=== PATIENT | female | born 1985 | race Caucasian/White ===

== ENCOUNTER 2019-10-02 16:09 | Emergency (ER) | payer MEDICAID ==
--- NOTE | 2019-10-02 16:25 | Emergency Department Record ---
History of Present Illness - General Chief Complaint: Abdominal Pain Stated Complaint: ABD PAIN Time Seen by Provider: 10/02/19 16:15 Source: Patient Mode of Arrival: Ambulatory Limitations: No limitations - History of Present Illness Initial Comments: 33 yo female presents with abdominal pain. The patient presents with abdominal and gynecologic concerns over the last 6-8 months. 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 The predisposes her for early cancers of multiple different causes. She has been monitored by GI and [employer]. She has had colonoscopies with polyps identified with precancerous findings. She has yearly scopes. Her last scope she thinks was last November. She has an appointment tomorrow with her GI doctor in [place]. She has had negative work ups in 2019 for ovarian and uterine cancers. She does have chronic pain from endometriosis. Her [facility] [employer] [facility] is in [place]. She has had months of nausea, discharge, lower discomfort. She is trying to get currently in anticipation of having a hysterectomy in the next 2-3 years to avoid cancer. No fever. No rash. She has hot and cold flashes. She admits to depression and anxiety given her medical diagnosis. She does not see a PCP. MD Complaint: Abdominal pain Onset/Timin -: Month(s) Location: Diffuse Radiation: Back Severity scale (1-10): 7 Consistency: Constant Improves With: Nothing Worsens With: Nothing Associated Symptoms: Other - Related Data LMP Date: 09/11/19 Patient : No Previous Rx's Medication Instructions Recorded Clindamycin HCl [Cleocin HCl] 300 mg PO TID #21 capsule 10/02/19 Promethazine HCl [Phenergan] 25 mg PO Q12H #15 tablet 10/02/19 Allergies Allergy/AdvReac Type Severity Reaction Status Date / Time cefaclor [From Ceclor] Allergy HIVES Verified 10/02/19 16:25 amoxicillin [From Augmentin] AdvReac NAUSEA AND Verified 10/02/19 16:25 VOMITING clavulanic acid AdvReac NAUSEA AND Verified 10/02/19 16:25 [From Augmentin] VOMITING Travel Screening - Travel/Exposure Within Last 30 Days Have you traveled within the last 30 days?: No Past Medical History - SOCIAL HISTORY Smoking Status: Current every day smoker Alcohol Use: None Drug Use: None - RESPIRATORY Hx Respiratory Disorders: Yes Hx Asthma: Yes - CARDIOVASCULAR Hx Cardio Disorders: No - NEURO Hx Neuro Disorders: No - GI Hx GI Disorders: No - Hx Genitourinary Disorders: No - ENDOCRINE Hx Endocrine Disorders: No - MUSCULOSKELETAL Hx Musculoskeletal Disorders: No - PSYCH Hx Psych Problems: No - HEMATOLOGY/ONCOLOGY Hx Hematology/Oncology Disorders: No Family Medical History Any Significant Family History?: No Physical Exam - General General Appearance: Alert, Oriented x3, Cooperative, No acute distress Limitations: No limitations - Head Head exam: Atraumatic, Normal inspection - Eye Eye exam: Normal appearance, PERRL. negative: Conjunctival injection, Scleral icterus - ENT ENT exam: Normal exam, Mucous membranes moist Ear exam: Normal external inspection Nasal Exam: Normal inspection Mouth exam: Normal external inspection - Neck Neck exam: Normal inspection, Full ROM, Lymphadenopathy (few small anterior cervical non tender, mobile, small lymph nodes) - Respiratory Respiratory exam: Normal lung sounds bilaterally. negative: Rhonchi, Stridor, Wheezes - Cardiovascular Cardiovascular Exam: Regular rate, Normal rhythm, Normal heart sounds - GI/Abdominal GI/Abdominal exam: Soft, Tenderness (mild lower tenderness but soft, no mass). negative: Distended, Guarding, Rebound, Rigid - Rectal Rectal exam: Deferred - exam: Normal external exam, Normal speculum exam. negative: Abnormal external exam, Vaginal bleeding, Vaginal discharge, Vaginal erythema - Extremities Extremities exam: Normal inspection - Back Back exam: Denies: CVA tenderness (R), CVA tenderness (L) - Neurological Neurological exam: Alert, Oriented X3 - Psychiatric Psychiatric exam: Anxious - Skin Skin exam: Dry, Intact, Normal color, Warm Course Vital Signs 10/02/19 16:14 Temperature 98.1 F Pulse Rate 80 Respiratory 20 Rate Blood Pressure 161/96 Pulse Ox 100 - Reevaluation(s) Reevaluation #1: 10/02/19 17:23 [facility] was reviewed including her radiology studies in 2018 (MRI enterography, ultrasounds), [facility] [employer] appointment in May with the recommendation for surveillance of her medical diagnosis. 10/02/19 17:37 The CBC was reviewed. No acute abnormality The UA is negative for infection The HCG is negative Wet prep negative for trich or yeast. No WBCs. No clue cells. Bacteria visualized. Moderate epithelial cells. 10/02/19 17:52 The CMP is normal Medical Decision Making - Lab Data Result diagrams: 10/02/19 17:00 10/02/19 17:00 Disposition Disposition: Discharge Clinical Impression: Abdominal pain Disposition: Home, Self-Care Condition: (1) Good Instructions: Abdominal Pain (ED) Additional Instructions: Call your [employer] for your follow up and continued cancer screening Follow up tomorrow as scheduled with your GI specialist. Take a copy of all your lab tests with your to the appointment. Prescriptions: Clindamycin HCl [Cleocin HCl] 300 mg PO TID #21 capsule Promethazine HCl [Phenergan] 25 mg PO Q12H #15 tablet Forms: Patient Portal Access Time of Disposition: 17:52 Quality - Quality Measures Quality Measures: N/A - Blood Pressure Screening Does Patient Have Any of the Following: No Blood Pressure Classification: Pre-Hypertensive BP Reading Systolic Measurement: 124 Diastolic Measurement: 80 Screening for High Blood Pressure: < Pre-Hypertensive BP, F/U Documented > [[id number]] Pre-Hypertensive Follow-up Interventions: Referral to alternative/primary care provider.
[2019-10-02] MEDS ORDERED: ONDANSETRON HCL IV 4 MG/2 ML VIAL IVP ONE (16:44)
[2019-10-02] MEDS ORDERED: 0.9 % SODIUM CHLORIDE 1,000 ML BAG IV ONE (16:44)
[2019-10-02] MEDS ORDERED: KETOROLAC 30 MG/ML VIAL IVP ONE (17:16)
[2019-10-02 17:24] LABS: ABSOLUTE NEUTROPHIL COUNT 8.21; BASO % 0.3 % (0-6); EOS % 1.3 % (0-6); GRAN % 75.3 % (47-80); HEMATOCRIT 42.8 % (35.0-47.0); HEMOGLOBIN 14.2 gm/dl (11.6-16.0); LYMPH % 17.3 % (16-45); MEAN CELL VOLUME 90.7 fl (81-97); MEAN CORPUSCULAR HEMOGLOBIN 30.1 pg (27-33); MEAN CORPUSCULAR HGB CONC 33.2 g/dl (32-36); MONO % 5.8 % (0-9); PLATELET COUNT 219 K/uL (130-400); RED BLOOD COUNT 4.72 M/uL (3.80-5.40); RED CELL DISTRIBUTION WIDTH 12.7 % (11.5-14.5); WHITE BLOOD COUNT W/O DIFF 10.9 K/uL (4.2-12.2)
[2019-10-02 17:26] LABS: URINE APPEARANCE CLEAR; URINE BILIRUBIN NEGATIVE (NEGATIVE); URINE BLOOD NEGATIVE (NEGATIVE); URINE COLOR YELLOW; URINE GLUCOSE (UA) NEGATIVE (NEGATIVE); URINE KETONE NEGATIVE (NEGATIVE); URINE LEUKOCYTE ESTERASE NEGATIVE (NEGATIVE); URINE NITRITE NEGATIVE (NEGATIVE); URINE PROTEIN NEGATIVE (NEGATIVE); URINE UROBILINOGEN 0.2 E.U./dL (0.20 - 1.00)
[2019-10-02 17:30] LABS: HCG,QUALITATIVE URINE NEGATIVE (NEGATIVE)
[2019-10-02 17:36] LABS: BLOOD UREA NITROGEN 14 mg/dL (6-20)
[2019-10-02 17:37] LABS: CREATININE 0.6 mg/dL (0.5-0.9); EST GLOMERULAR FILTRATION RATE > 60 mL/min; TOTAL PROTEIN 7.3 g/dL (6.6-8.7)
[2019-10-02 17:39] LABS: GLUCOSE,RANDOM 97 mg/dL (74-109)
[2019-10-02 17:42] LABS: ALB/GLOB RATIO 1.6 (1.1-1.8); ALBUMIN 4.5 g/dL (4.0-5.0); ALKALINE PHOSPHATASE 49 U/L (35-104); ALT/SGPT 19 U/L (<33); AST/SGOT 21 U/L (10.0-35.0)
[2019-10-02 17:52] LABS: THYROID STIMULATING HORMONE 1.82 uIU/mL (0.270-4.20)
[2019-10-04 00:52] LABS: GC SPECIMEN TYPE Vaginal
== END 2019-10-02 18:24 | disposition home or self-care (01) ==
LOC: ER 16:09
DX: R10.10 Upper abdominal pain, unspecified (principal); R11.0 Nausea; R19.7 Diarrhea, unspecified; F17.210 Nicotine dependence, cigarettes, uncomplicated
CPT/HCPCS: 80053; 81003; 81025; 84443; 85025; 87210; 96374; 96375; 99284; J1885; J2405; J7030